=== PATIENT | female | born 2000 | race Two or more races ===

== ENCOUNTER 2020-01-30 19:25 | Observation (INO) | payer MEDICAID, OTHER ==
[~2020-01-30] VITALS: Ht 170.2 cm; Wt 74.4 kg
== END 2020-01-30 21:47 | disposition home or self-care (01) ==
LOC: LDRP 19:25
PROVIDERS: ADMIT Specialist; ATTEND Specialist
DX: O36.5930 Maternal care for other known or suspected poor fetal growth, third trimester, not applicable or unspecified (principal); O99.891 Other specified diseases and conditions complicating pregnancy; M54.5 Low back pain; R10.2 Pelvic and perineal pain; Z3A.37 37 weeks gestation of pregnancy
CPT/HCPCS: 59025; 76818; 81002; G0378

== ENCOUNTER 2020-02-03 19:38 | Observation (INO) | payer MEDICAID ==
[~2020-02-03] VITALS: Ht 157.5 cm; Wt 74.4 kg
== END 2020-02-03 21:35 | disposition home or self-care (01) ==
LOC: LDRP 19:38
PROVIDERS: ADMIT Obstetrics & Gynecology; ATTEND Obstetrics & Gynecology
DX: O36.5930 Maternal care for other known or suspected poor fetal growth, third trimester, not applicable or unspecified (principal); Z3A.38 38 weeks gestation of pregnancy
CPT/HCPCS: 59025; 76818; 81002; G0378

== ENCOUNTER 2020-02-06 20:22 | Observation (INO) | payer MEDICAID | END 2020-02-06 22:20 | disposition home or self-care (01) | LOC: UNDOADMOB 20:22 → LDRP 20:22 → UNDODISOB 22:20 | PROVIDERS: ADMIT Obstetrics & Gynecology; ATTEND Obstetrics & Gynecology | DX: O36.5930 Maternal care for other known or suspected poor fetal growth, third trimester, not applicable or unspecified (principal); Z3A.39 39 weeks gestation of pregnancy; Z91.040 Latex allergy status | CPT/HCPCS: 59025; 76818; 81002; G0378 ==

== ENCOUNTER 2020-02-08 08:48 | Observation (INO) | payer MEDICAID ==
[2020-02-08] MEDS ORDERED: PREN-129 OR (09:32)
== END 2020-02-08 12:00 | disposition home or self-care (01) ==
LOC: UNDOADMOB 08:48 → LDRP 08:48 → UNDODISOB 12:00
PROVIDERS: ADMIT Obstetrics & Gynecology; ATTEND Obstetrics & Gynecology
DX: Z34.93 Encounter for supervision of normal pregnancy, unspecified, third trimester (principal); Z3A.39 39 weeks gestation of pregnancy; Z91.040 Latex allergy status
CPT/HCPCS: 59025; 76805; 76818; 81002; G0378

== ENCOUNTER 2020-02-11 08:44 | Observation (INO) | payer MEDICAID ==
[~2020-02-11 08:44] MED LIST: PREN-129 OR
== END 2020-02-11 10:35 | disposition home or self-care (01) ==
LOC: LDRP 08:44
PROVIDERS: ADMIT Obstetrics & Gynecology; ATTEND Obstetrics & Gynecology
DX: O36.5930 Maternal care for other known or suspected poor fetal growth, third trimester, not applicable or unspecified (principal); Z91.040 Latex allergy status; Z3A.39 39 weeks gestation of pregnancy
CPT/HCPCS: 59025; 81002; G0378

== ENCOUNTER 2020-02-14 08:32 | Observation (INO) | payer MEDICAID | END 2020-02-14 10:05 | disposition home or self-care (01) | LOC: LDRP 08:32 | PROVIDERS: ADMIT Specialist; ATTEND Specialist | DX: O62.9 Abnormality of forces of labor, unspecified (principal); O48.0 Post-term pregnancy; Z3A.40 40 weeks gestation of pregnancy | CPT/HCPCS: 59025; 76818; 81002; 84112; G0378; Q0114 ==

== ENCOUNTER 2020-02-15 01:33 | Inpatient (IN) | payer MEDICAID ==
[~2020-02-15] VITALS: Ht 170.2 cm; Wt 74.4 kg
[2020-02-15] MEDS ORDERED: LACTATED RINGER'S 1,000 ML IV SCH (02:00)
[2020-02-15] MEDS ORDERED: WITCH HAZEL-GLYCERIN PAD TOP PRN (02:00)
[2020-02-15] MEDS ORDERED: PHISODERM TOP SOLN 240ML BTL TOP PRN (02:00)
[2020-02-15] MEDS ORDERED: LACT. RINGERS/OXYTOCIN 20UNITS 1,000 ML IV ONE (02:00)
[2020-02-15] MEDS ORDERED: BUTORPHANOL TARTRATE 2 MG/1 ML VIAL IV PRN (02:00)
[2020-02-15] MEDS ORDERED: DERMOPLAST 60ML BOTTLE TOP PRN (02:00)
[2020-02-15] MEDS ORDERED: LIDOCAINE 2%HCL (LOCAL ANESTH.) INJ 20ML MDV IJ ONE (02:00)
[2020-02-15] MEDS ORDERED: PROMETHAZINE HCL 25 MG/ML 1ML IM PRN (02:00)
[2020-02-15 03:08] LABS: Basophils # (auto) 0 10 ^3/uL (0-0.2); Basophils % (auto) 0.4 % (0.0-2.0); Eosinophils # (auto) 0 10 ^3/uL (0-0.8); Hematocrit 34.8 % (36.0-46.0); Hemoglobin 11.9 g/dL (12.2-16.2); Lymphocytes # (auto) 1.4 10 ^3/uL (0.4-5.4); Lymphocytes % (auto) 13.4 % (10.0-50.0); Mean Corpuscular Hgb Conc. 34.1 g/dL (32.0-36.0); Monocytes # (auto) 0.3 10 ^3/uL (0-1.3); Monocytes % (auto) 3.3 % (0.0-12.0); Neutrophils # (auto) 8.5 10 ^3/uL (1.6-8.6); Neutrophils % (auto) 82.9 % (37.0-80.0); Nucleated Red Blood Cells % 0.2 %; Platelet Count (auto) 173 10^3/uL (140-450); Red Blood Cells 4.09 10^6/uL (4.0-5.20); Red Cell Distribution Width 15.7 % (11.8-14.3); White Blood Cell 10.2 10^3/uL (4.4-10.8)
[2020-02-15 03:17] LABS: Urine Bacteria FEW /hpf (None Seen); Urine Blood 2+ /uL (Negative); Urine Hyaline Cast FEW /lpf (0 - 2); Urine Mucus FEW (None Seen); Urine Specific Gravity 1.022 (1.001-1.035); Urine WBC 116 /hpf (0 - 5)
[2020-02-15 03:23] LABS: INR 0.92 (0.9-1.15); Partial Thromboplastin Time 26.6 sec (23.0-31.2)
[2020-02-15 03:26] LABS: Albumin 2.6 g/dL (3.4-5.0); Calcium 8.6 mg/dL (8.5-10.1); Potassium 3.4 mmol/L (3.5-5.1)
[2020-02-15 03:32] LABS: Alcohol, Urine < 3.0 mg/dL (0-10); Amphetamine Screen, Urine NEGATIVE (NEGATIVE); Barbiturate Scree,Urine NEGATIVE (NEGATIVE); Benzodiazephine Screen, Urine NEGATIVE (NEGATIVE); Cannabinoid Screen, Urine NEGATIVE (NEGATIVE); Cocaine Screen, Urine NEGATIVE (NEGATIVE); Opiate Scree,Urine NEGATIVE (NEGATIVE); Phencyclidine Screen, Urine NEGATIVE (NEGATIVE)
[2020-02-15 03:32] LABS: BUN/Creatinine Ratio 16.3; Bilirubin, Total 0.5 mg/dL (0.2-1.0); Total Protein 6.9 g/dL (6.4-8.2)
[2020-02-15] MEDS ORDERED: miSOPROStol 100 mcg TAB PR ONE (03:40)
[2020-02-15] MEDS ORDERED: miSOPROStol 100 mcg TAB SL ONE (03:40)
[2020-02-15] MEDS ORDERED: IBUPROFEN 600 MG TAB PO PRN (04:00)
[2020-02-15] MEDS ORDERED: miSOPROStol 100 mcg TAB ONE (04:20)
[2020-02-15 07:20] VITALS: BP 106/53
[2020-02-15 11:00] VITALS: BP 110/60
[2020-02-15 15:00] VITALS: BP 104/62
[2020-02-15 19:24] VITALS: BP 107/76
[2020-02-15 23:15] VITALS: BP 102/56
[2020-02-16] MEDS ORDERED: RHO (D) IMMUNE GLOBULIN 300 MCG INJ IM ONE (00:30)
[2020-02-16 03:05] VITALS: BP 100/52
[2020-02-16 06:52] LABS: Albumin 2.1 g/dL (3.4-5.0); Calcium 7.9 mg/dL (8.5-10.1); Potassium 3.5 mmol/L (3.5-5.1)
[2020-02-16 06:58] LABS: BUN/Creatinine Ratio 13.9; Bilirubin, Total 0.4 mg/dL (0.2-1.0); Total Protein 5.6 g/dL (6.4-8.2)
[2020-02-16 07:00] VITALS: BP 90/59
[2020-02-17 05:08] LABS: RPR Non Reactive (Non Reactive)
== END 2020-02-16 11:00 | disposition home or self-care (01) | DRG 560 ==
LOC: LDRP 01:33 → UNDOADMOB 01:33 → INTOOBSV 01:37 → OBSVTOIN 01:37 → LDRP 01:37
PROVIDERS: ADMIT Specialist; ATTEND Specialist
PROC: 10E0XZZ Delivery of Products of Conception, External Approach (ICD-10-PCS; principal; 2020-02-15)
PROC: 10907ZC Drainage of Amniotic Fluid, Therapeutic from Products of Conception, Via Natural or Artificial Opening (ICD-10-PCS; 2020-02-15)
PROC: 0HQ9XZZ Repair Perineum Skin, External Approach (ICD-10-PCS; 2020-02-15)
DX: O26.893 Other specified pregnancy related conditions, third trimester (principal); Z3A.40 40 weeks gestation of pregnancy; Z37.0 Single live birth; Z67.11 Type A blood, Rh negative; O69.81X0 Labor and delivery complicated by cord around neck, without compression, not applicable or unspecified; O70.0 First degree perineal laceration during delivery; Z20.828 Contact with and (suspected) exposure to other viral communicable diseases
CPT/HCPCS: 36415; 59025; 59409; 80053; 80307; 81001; 81002; 85025; 85610; 85730; 86592; 86850; 86870; 86900; 86901; 87426; 90384; 96360; 96361; 96365; 96366; G0378; J2590